=== PATIENT | male | born 1980 | race Caucasian/White ===

== ENCOUNTER 2019-02-06 11:53 | Emergency (ER) | payer OTHER ==
[2019-02-06 12:04] VITALS: RESP 18
--- NOTE | 2019-02-06 13:11 | ED PDOC ---
HPI: Allergic Reaction Time Seen by Provider: 02/06/19 12:13 Chief Complaint (Nursing): Allergic Reaction Chief Complaint (Provider): ALLERGIC REACTION History Per: Patient History/Exam Limitations: no limitations Onset/Duration Of Symptoms: Hrs Current Symptoms Are (Timing): Still Present Context: denies: Travel, Food, Recent Trauma Possible Cause: Medication Associated Symptoms: Skin Rash, Itching, Redness. denies: Dyspnea, Trouble Swallowing, Dizziness, Chest Pain Home/EMS Treatment: Epi-pen Severity: Moderate Pain Scale Rating Of: 6 Additional History Per: Patient Additional Complaint(s): 38 Y/O MALE PRESENTS THE ED C/O SUDDEN ONSET OF SWEATING ABD/PAIN, N/V STARTED AFTER TAKING A DOSE OF AMOXICILLIN FOR SINUS INFECTION THAT WAS GIVEN TO HIM ON 01/22. PATIENT STATES HE TOOK ONE WEEK OF AMOX AND STOPPED DUE TO FEELING BETTER, PATIENT STATES A FEW DAYS OF STARTING MED HE DEVELOPED A RASH WHILE AWAY SKIING FOR WHICH HE TOOK BENADRYL AND RASH IMPROVED. TODAY HE TOOK ANOTHER DOSE OF AMOX BECAUSE HE WAS GETTING SINUS SYMPTOMS AGAIN AND DEVELOPED THE ABOVE MENTIONED SYMPTOMS. HE WENT TO [facility] WHERE HE WAS ADMINISTERED EPI-PEN AND TRANSPORTED TO ED VIA EMS. PATIENT STATES ITCHINESS HAS IMPROVED, DENIES CP, SOB. Past Medical History Vital Signs: Last Vital Signs Temp 97 F L 02/06/19 12:00 Pulse 96 H 02/06/19 12:00 Resp 18 02/06/19 12:00 BP 128/75 02/06/19 12:00 Pulse Ox 97 02/06/19 12:00 AMIE Report Viewed: No - Surgical History Surgical History: No Surg Hx - Family History Family History: States: Unknown Family Hx - Living Arrangements Living Arrangements: With Family - Home Medications Home Medications: Ambulatory Orders Medication Instructions Recorded DiphenhydrAMINE [Benadryl] 50 mg PO Q6H PRN #8 cap 02/06/19 Famotidine [Pepcid] 20 mg PO DAILY #8 tab 02/06/19 Fluticasone Nasal [Flonase] 1 - 2 spry NS DAILY #1 bottle 02/06/19 levoFLOXacin [Levaquin] 500 mg PO DAILY #5 tab 02/06/19 predniSONE [predniSONE Tab] 60 mg PO DAILY #12 tab 02/06/19 - Allergies Allergies/Adverse Reactions: Allergies Allergy/AdvReac Type Severity Reaction Status Date / Time No Known Allergies Allergy Verified 02/06/19 11:59 Review of Systems ROS Statement: Except As Marked, All Systems Reviewed And Found Negative ENT: Positive for: Nose Congestion. Negative for: Mouth Swelling, Throat Pain, Throat Swelling Cardiovascular: Negative for: Chest Pain, Palpitations Respiratory: Negative for: Cough, Shortness of Breath, SOB with Exertion, Wheezing Gastrointestinal: Negative for: Nausea, Vomiting, Abdominal Pain Skin: Positive for: Rash (THROUGH OUT) Physical Exam - Reviewed Nursing Documentation Reviewed: Yes Vital Signs Reviewed: Yes - Physical Exam Appears: Positive for: Well, Non-toxic, No Acute Distress Head Exam: Positive for: ATRAUMATIC, NORMAL INSPECTION, NORMOCEPHALIC Skin: Positive for: Normal Color, Warm, Rash (REDNESS THROUGHOUT, FLAT, CONFLUENT) Eye Exam: Positive for: EOMI, Normal appearance, PERRL ENT: Positive for: Normal ENT Inspection, Nasal Congestion. Negative for: Pharyngeal Erythema, Tonsillar Exudate, Tonsillar Swelling Neck: Positive for: Normal, Painless ROM, Supple Cardiovascular/Chest: Positive for: Regular Rate, Rhythm Respiratory: Positive for: CNT, Normal Breath Sounds Pulses-Radial (L): 2+ Pulses-Radial (R): 2+ Gastrointestinal/Abdominal: Positive for: Normal Exam, Bowel Sounds (NORMOACTIVE ), Soft. Negative for: Tenderness Back: Positive for: Normal Inspection Extremity: Positive for: Normal ROM Neurological/Psych: Positive for: Awake, Alert, Normal Tone, Oriented - ECG O2 Sat by Pulse Oximetry: 97 - Progress ED Course And Treament: SOLMEDROL 125MG PEPCID 20MG IV 0.9NS 1 L BOLUS CARDIAC MONITORING OBSERVATION 14:45: PT RESTING COMFORTABLY IN BED. NO RESP DISTRESS. RASH IMPROVED. 1600: PATIENT STABLE FOR D/C NO SIGNS OF REFRACTORY ALLERGIC SYMPTOMS. PT GIVEN RX FOR BENADRYL, PEPCID, PREDNISONE, LEVOFLOXACIN AND FLONASE FOR CONTINUED SINUS SYMPTOMS. FOLLOW UP WITH PMD NEEDED. PT INSTRUCTED NOT TO TAKE PENCILLINS IN THE FUTURE. RETURN TO ED PRECAUTIONS. Re-evaluation Time: 14:00 Condition: Re-examined Disposition - Clinical Impression Clinical Impression: Allergic reaction, Acute sinus infection - Patient ED Disposition Is Patient to be Admitted: No - Disposition Disposition: Routine/Home Disposition Time: 16:00 Condition: IMPROVED Prescriptions: DiphenhydrAMINE [Benadryl] 50 mg PO Q6H PRN #8 cap PRN Reason: Itching / Pruritus Famotidine [Pepcid] 20 mg PO DAILY #8 tab Fluticasone Nasal [Flonase] 1 - 2 spry NS DAILY #1 bottle levoFLOXacin [Levaquin] 500 mg PO DAILY #5 tab predniSONE [predniSONE Tab] 60 mg PO DAILY #12 tab Instructions: Allergy Skin Testing, Drug Allergy - POA Present On Arrival: None
[2019-02-06] MEDS ORDERED: Sodium Chloride 0.9% 1,000 ML IV STA (13:24)
[2019-02-06 16:36] VITALS: BP 110/62; PULSE 70; TEMP 98.5
[2019-02-06 17:03] VITALS: O2SAT 97
== END 2019-02-06 16:36 | disposition home or self-care (01) ==
LOC: H.ER 11:53
DX: T78.40XA Allergy, unspecified, initial encounter (principal); J01.90 Acute sinusitis, unspecified
CPT/HCPCS: 96361; 96374; 96375; 99283; J2930; J7030